=== PATIENT | female | born 1995 | race Two or more races ===

== ENCOUNTER 2024-08-15 20:06 | Emergency (ER) | payer BC, SELFPAY ==
[2024-08-15 20:09] VITALS: BP 152/96
[2024-08-15 20:25] LABS: % Basophils 0.2 % (0-2); % Eosinophils 0.7 % (0-6); % Immature Granulocytes 0.4 % (0-0.5); % Monocytes 3.8 % (1.7-9.3); % Neutrophils 88.9 % (42.2-75.2); Absolute Eosinophils 0.1 10^3/uL (0-0.7); Absolute Immature Granulocytes 0.1 10^3/uL (0-0.05); Absolute Lymphocytes 0.8 10^3/uL (1.2-3.4); Absolute Monocytes 0.5 10^3/uL (0.1-0.6); Absolute Neutrophils 12.2 10^3/uL (1.4-6.5); Hematocrit 44.4 % (37.0-47.0); Mean Corp Hgb Conc. 33.8 g/dL (33.0-37.0); Mean Corpuscular Hgb 29.6 pg (27.0-31.0); Mean Corpuscular Volume 87.7 fL (81.0-99.0); Mean Platelet Volume 9.1 fL (7.4-10.4); Nucleated Red Blood Cells % 0 %; Platelet Count 216 10^3/uL (130-400); Red Blood Cell Count 5.06 10^6/uL (4.20-5.40); Red Cell Dist. Width 12.6 % (11.5-14.5); White Blood Cell Count 13.7 10^3/uL (4.8-10.8)
[2024-08-15 20:45] LABS: HCG, Serum Qualitative Screen Negative
[2024-08-15 20:50] LABS: ALT (SGPT) 17 U/L (0-35); AST (SGOT) 22 U/L (14-36); Alkaline Phosphatase 46 U/L (38-126); Blood Urea Nitrogen 11 mg/dl (7-17); Calcium 9.4 mg/dl (8.4-10.2); Carbon Dioxide 25 mmol/L (22-30); Chloride 103 mmol/L (98-107); Glucose 101 mg/dl (70-99); Lipase 115 U/L (23-300); Potassium 4.4 mmol/L (3.5-5.1); Sodium 138 mmol/L (135-145); Total Bilirubin 0.9 mg/dl (0.2-1.3); Total Protein 8.1 g/dl (6.3-8.2); eGFR > 60.00
--- NOTE | 2024-08-15 21:15 | ED.GENMED ---
History of Present Illness
General
Chief Complaint: Abdominal Symptoms
Source: patient
Exam Limitations: none
Time Seen by Provider: 08/15/24 20:43
History of Present Illness
History of Present Illness:
This is a 28 year old female that comes in with c/o vomiting, diarrhea and chills. States that this started at 4pm today. States that she also has chest pain, headache and dizziness. State that she is unable to keep anything down. Denies any fever,
SOB, urinary burning.
Past History
Past History
ED Past Medical History: Psychiatric (Depression, Anxiety, ) and Other (Autism, PTSD); Negative Asthma, HTN, Hypercholesterolemia or NIDDM
ED Past Surgical History: None
Social History
Tobacco: Non-smoker
Alcohol: Occasional
Personal:
Living: with family
Review of Systems
Review of Systems
All Other Systems: ROS reviewed and negative except as documented in HPI and ROS
Constitutional: Reports no symptoms; Denies fever or chills
EENT: Reports no symptoms
Respiratory: Reports no symptoms; Denies cough or trouble breathing
Cardiac: Reports chest pain
ABD/GI: Reports abdominal pain, nausea, vomiting and diarrhea
: Reports no symptoms; Denies dysuria, frequency or urgency
Musculoskeletal: Reports no symptoms
Skin: Reports no symptoms
Neurological: Reports dizzy and headache
Psychiatric: Reports no symptoms
Phy Exam
General Physical Exam
General Presentation: well appearing and no apparent distress
General age: appears stated age
General Skin: warm and dry
General Habitus: normal
General Mental: alert
General Hydration: appears well hydrated
ENT Exam
ENT Exam: TM's normal, pharynx normal and neck supple
Eye Exam
Eye Exam: EOMI
Cardiovascular Exam
Cardiovascular Exam: regular rate/rhythm, no edema, no murmur and normal peripheral pulses
Pulmonary Exam
Pulmonary Exam: lungs clear, no respiratory distress, no rales, chest non tender, no crackles, no rhonchi, no wheezing and no cough
Gastrointestinal Exam
Gastrointestinal Exam: soft, no organomegaly, no pulsatile mass, non distended, tender (Generalized tenderness with palpation) and other (Hypoactive bowel sounds)
Musculoskeletal Exam
Musculoskeletal Exam: full ROM and no edema
Skin Exam
Skin Exam: normal color, warm/dry, no rash and no petechia
Course
Orders/Labs/Results
Orders:
Orders
08/15/24 20:12
IV Insert/Care/Rem.- Treatment PRN
Test Result ONCE
08/15/24 20:16
Complete Blood Count/With Diff Urgent
Comprehensive Metabolic Panel Urgent
HCG, Serum Qualitative Screen Urgent
Comment: Notify provider if positive test present
Lipase Urgent
08/15/24 21:14
0.9% Sodium Chloride 1000 ml [Nss] 1,000 ml IV BOLUS
Ondansetron Injectable [Zofran] 4 mg IV NOW STA
Pantoprazole [Protonix IV] 40 mg IV NOW STA
08/15/24 21:52
Troponin I Urgent
08/15/24 22:05
Dicyclomine HCl [Bentyl] 20 mg IM NOW STA
Abnormal Lab Results
08/15/24
20:16
WBC 13.7 H 10^3/uL
(4.8-10.8)
Abs Immat Gran (auto) 0.1 H 10^3/uL
(0-0.05)
Absolute Neuts (auto) 12.2 H 10^3/uL
(1.4-6.5)
Absolute Lymphs (auto) 0.8 L 10^3/uL
(1.2-3.4)
Neutrophils % 88.9 H %
(42.2-75.2)
Lymphocytes % 6.0 L %
(20.5-51.1)
Glucose 101 H mg/dl
(70-99)
08/15/24 20:16
08/15/24 20:16
Leukocytosis, Glucose nonfasting. Lipase normal at 115, HCG negative. Troponin <0.012
Vital Signs
Initial and Last Documented VS:
Initial Vital Signs
Temp Pulse Resp BP Pulse Ox
99.9 F 111 20 152/96 100
08/15/24 20:09 08/15/24 20:09 08/15/24 20:09 08/15/24 20:09 08/15/24 20:09
Last Documented Vital Signs
Temp Pulse Resp BP Pulse Ox
99.9 F 111 20 152/96 100
08/15/24 20:09 08/15/24 20:09 08/15/24 20:09 08/15/24 20:09 08/15/24 20:09
MDM/Problems Addressed
Differential Diagnosis Includes:
Enteritis, Viral GI syndrome
MDM/Problems Addressed:
This is a 28 year old female that comes in with c/o nausea, vomiting, diarrhea with chills. States that she also has chest pain and that this started at 4pm.
Will get labs, CT abd/pelvis, Give IV fluids and Zofran.
Patient decided against CT. Order was cancelled by Nursing.
Back into see patient. Patient states that she is feeling better. Explained that this is most likely the GI viral syndrome. Patient to stay away form milk and milk products until the diarrhea stops. Increase her water intake to 8-8oz glasses daily.
A prescription for Zofran has been given to patient since they are from out of town. Patient to follow up with the family doctor as needed. Return with any concerns.
Chronic conditions affecting care: Psychiatric illness
Acute Exacerbation and/or Progression of Chronic Illness: Psychiatric illness
*Pulse Oximetry
Patient hypoxic: no
*EKG
Interpreted by ED Provider?: NA
Rate: EKG- N/A
*Content Strategy Lead Interpretation
Rate: Content Strategy Lead- N/A
*Critical Care Note
Total Time (30-74mins, 75-104mins- exclusive of procedures): Not Applicable
ED Attending Note
-
Portions of this chart may have been created with voice recognition software.� Occasional wrong word or��sound alike� substitutions may have occurred due to the inherent limitations of voice recognition software.
Discharge Plan
Departure
Patient Disposition: Home (Routine Discharge)
Date of Disposition: 08/15/24
Time of Disposition: 22:41
Patient with high blood pressure during this ER visit?: Yes
Condition: Good
Covid-19: Not Applicable
Discharge Problem:
Nausea vomiting and diarrhea
Instructions: Diarrhea in teens and adults, Nausea and Vomiting, Adult (DC), BLOOD PRESSURE
Prescriptions:
New
ondansetron 4 mg tablet,disintegrating
4 mg PO Q8H PRN (Reason: nausea and vomiting) Qty: 7 0RF
Referrals:
NONE,* [Family Provider] -
Activity Restrictions/Additional Instructions:
As discussed, your blood work shows that your white blood cell count is slightly elevated. This can happen with a viral syndrome. Please stay away from milk and milk products as this will keep the diarrhea going and is hard for the gut to digest.
Please continue with a liquid diet tomorrow and advance as tolerated. Jennifer-Michael has protein. You have had a prescription for Zofran given to help with any nausea/vomiting. Follow up with the family doctor as needed when you get home. IF YOU HAVE ANY
OTHER CONCERNS PLEASE RETURN TO THE EMERGENCY ROOM.
Interventions
Interventions:
*Risk Screen - Suicide Last Done: 08/15/24 20:09
*Neglect/Abuse Screening Last Done: 08/15/24 20:09
*ED COVID-19 Vaccine History Last Done: 08/15/24 20:09
[facility]-Ktazrj-Hmruwlvb[facility] Assessment Last Done: 08/15/24 21:41
Discharge Date and Time
Print Language: KHMER
[2024-08-15] MEDS: PROTONIX IV 40 MG IV (21:24)
[2024-08-15] MEDS: ZOFRAN 4 MG IV (21:24)
[2024-08-15] MEDS: NSS 1000 IV (21:24)
[2024-08-15] MEDS: BENTYL 20 MG IM (22:21)
[2024-08-15 22:23] LABS: Troponin I < 0.012 ng/ml
[2024-08-15 22:51] VITALS: BP 126/65
== END 2024-08-15 22:52 | disposition home or self-care (01) ==
LOC: EMR 20:06
PROVIDERS: Clinical Nurse Specialist Family Health; EMERGENCY PHYSICIAN Emergency Medicine
DX: R11.2 Nausea with vomiting, unspecified (principal); R19.7 Diarrhea, unspecified; R10.9 Unspecified abdominal pain; R51.9 Headache, unspecified; R42 Dizziness and giddiness; R03.0 Elevated blood-pressure reading, without diagnosis of hypertension; F32.A Depression, unspecified; F41.9 Anxiety disorder, unspecified; F84.0 Autistic disorder; F43.10 Post-traumatic stress disorder, unspecified; Z88.0 Allergy status to penicillin
CPT/HCPCS: 99284; 96374; 96375; 96361; 96372; 80053; 83690; 84484; 84703; 85025